=== PATIENT | female | born 1965 | race Caucasian/White ===

== ENCOUNTER 2017-10-19 18:39 | Emergency (ER) | payer OTHER ==
--- NOTE | 2017-10-19 18:59 | ER Report ---
History and Physical Time Seen By MD: 18:58 Hx. of Stated Complaint: PATIENT STATED HAVING ABD. PAIN THIS AM; GOTTEN WORSE TODAY; PT ALSO HAS NAUSEA AND VOMITING WELL HPI/ROS CHIEF COMPLAINT: abdominal pain HISTORY OF PRESENT ILLNESS: This is a 51 year old female. She has been having right lower abdominal pain for most of the day, started this morning, worsening through the day. Dull pain with intermittent severe sharp pain. Having nausea and vomiting as well. Not eating or drinking much so urinating less. No problems with bowels. No fevers, but having lc-menopausal flushes. REVIEW OF SYSTEMS: Constitutional: No fever or chills. Eyes: No vision changes. ENT: No sore throat. No congestion. Cardiovascular: No chest pain. No palpitations. Respiratory: No cough. No shortness of breath. Gastrointestinal: As above. Genitourinary: No dysuria. Musculoskeletal: No back pain. No extremity pain. Skin: No rashes. Neurological: No numbness. No weakness. Allergies: Coded Allergies: No Known Drug Allergies (Unverified , 10/19/17) Home Meds Active Scripts Hydromorphone Hcl (DILAUDID) 2 Mg Tablet, 2 MG PO Q4H Y for PAIN, #15 TAB 0 Refills Prov:SURINDER CORONA MD 10/20/17 Ondansetron (ZOFRAN ODT) 4 Mg Tab.rapdis, 4 MG PO Q6H Y for NAUSEA/VOMITING, # 20 TAB.ANDRA 0 Refills Prov:SURINDER CORONA MD 10/20/17 Reviewed Nurses Notes: Yes Hx Substance Use Disorder: No Hx Alcohol Use: Yes (OCC.) Constitutional Vital Sign - Last 24 Hours 10/19/17 10/19/17 10/19/17 10/19/17 18:46 18:51 19:09 19:39 Temp 97.9 Pulse 81 66 78 Resp 18 B/P (MAP) 116/69 (85) 116/69 Pulse Ox 100 99 97 O2 Delivery Room Air 10/19/17 10/19/17 10/19/17 10/19/17 20:09 20:14 20:29 20:44 Pulse 75 77 67 ??? Pulse Ox 98 93 99 10/19/17 10/19/17 10/19/17 10/19/17 20:49 20:59 21:00 21:14 Pulse 75 84 B/P (MAP) 113/80 (91) 111/65 (80) Pulse Ox 100 98 10/19/17 10/19/17 10/19/17 10/19/17 21:29 21:30 21:44 21:59 Pulse 84 84 81 B/P (MAP) 103/70 (81) Pulse Ox 99 100 99 10/19/17 10/19/17 10/19/17 10/19/17 22:04 22:19 22:30 22:34 Pulse 76 77 ??? B/P (MAP) ???/??? (1665) Pulse Ox 99 100 10/19/17 10/19/17 10/19/17 10/19/17 22:49 23:00 23:04 23:30 Pulse ? B/P (MAP) ???/??? (1665) ???/??? (1665) 10/19/17 10/19/17 10/19/17 10/20/17 23:34 23:49 23:54 00:09 Pulse 85 73 87 72 B/P (MAP) 95/78 (84) Pulse Ox 96 96 94 96 10/20/17 10/20/17 00:14 00:24 Pulse 69 B/P (MAP) 111/66 (81) Pulse Ox 96 Physical Exam General Appearance: The patient is alert. Acute distress due to pain. Eyes: Pupils are equal, round. No pallor, injection or icterus. ENT: Mucous membranes are moist. Neck: Supple and non tender. Respiratory: Lungs are clear to auscultation. Cardiovascular: Regular rate and rhythm. No murmurs, gallops or rubs. Normal capillary refill. Gastrointestinal: Abdomen is soft, tender in right lower abdomen, severe with rebound and guarding. Nondistended. Normal active bowel sounds. No costovertebral angle tenderness with percussion. Neurological: Alert and oriented x3. Skin: Warm and dry. No rashes. Musculoskeletal: Extremities are nontender. No tenderness in palpation of the back and spine. DIFFERENTIAL DIAGNOSIS: After history and physical exam, differential diagnosis was considered for abdominal pain in a female including but not limited to ovarian cyst, pelvic inflammatory disease, ovarian torsion, urinary tract infection, and appendicitis. Medical Decision Making Data Points Result Diagram: 10/19/17189910/19/171899 Laboratory Hematology Test 10/19/17 19:00 10/19/17 20:49 Red Blood Count 4.50 M/uL (4.17-5.56) Mean Corpuscular Volume 95.6 fL (80.0-96.0) Mean Corpuscular Hemoglobin 34.1 pg (26.0-33.0) Mean Corpuscular Hemoglobin Concent 35.7 g/dL (32.0-36.0) Red Cell Distribution Width 12.1 % (11.5-14.5) Mean Platelet Volume 7.1 fL (7.2-11.1) Neutrophils (%) (Auto) 52.4 % (39.4-72.5) Lymphocytes (%) (Auto) 39.3 % (17.6-49.6) Monocytes (%) (Auto) 6.2 % (4.1-12.4) Eosinophils (%) (Auto) 1.4 % (0.4-6.7) Basophils (%) (Auto) 0.7 % (0.3-1.4) Nucleated RBC Relative Count (auto) 0.0 /100WBC Neutrophils # (Auto) 4.1 K/uL (2.0-7.4) Lymphocytes # (Auto) 3.1 K/uL (1.3-3.6) Monocytes # (Auto) 0.5 K/uL (0.3-1.0) Eosinophils # (Auto) 0.1 K/uL (0.0-0.5) Basophils # (Auto) 0.1 K/uL (0.0-0.1) Nucleated RBC Absolute Count (auto) 0.00 K/uL Sodium Level 140 mmol/L (137-145) Potassium Level 3.5 mmol/L (3.5-5.0) Chloride Level 104 mmol/L (98-107) Carbon Dioxide Level 22 mmol/L (22-31) Blood Urea Nitrogen 12 mg/dl (7-18) Creatinine 0.90 mg/dl (0.52-1.04) Glomerular Filtration Rate Calc > 60.0 Random Glucose 144 mg/dl (75-110) Lactate 1.5 mmol/L (0.7-2.1) Calcium Level 9.0 mg/dl (8.4-10.2) Total Bilirubin 0.6 mg/dl (0.2-1.3) Aspartate Amino Transf (AST/SGOT) 25 U/L (0-35) Alanine Aminotransferase (ALT/SGPT) 28 U/L (0-56) Alkaline Phosphatase 66 U/L (0-126) Total Protein 7.2 g/dl (6.3-8.2) Albumin 4.2 g/dl (3.5-5.0) Amylase Level 76 U/L (0-110) Lipase 18 U/L (23-300) Urine Color Straw Urine Clarity Clear Urine pH 7.0 pH (4.8-9.5) Urine Specific [place] 1.038 Urine Protein Negative mg/dL (NEGATIVE) Urine Glucose (UA) Negative mg/dL (NEGATIVE) Urine Ketones 20 mg/dL (NEGATIVE) Urine Blood Negative (NEGATIVE) Urine Nitrite Negative (NEGATIVE) Urine Bilirubin Negative (NEGATIVE) Urine Urobilinogen Negative mg/dL (0.2-1.9) Urine Leukocyte Esterase Negative (NEGATIVE) Urine RBC <1 /HPF (0-2/HPF) Urine WBC 1 /HPF (0-5/HPF) Urine Squamous Epithelial Cells Moderate /LPF (</=FEW) Urine Bacteria Negative /HPF (NONE-FEW) Urine Mucus None /HPF (NONE-FEW) Chemistry Test 10/19/17 19:00 10/19/17 20:49 White Blood Count 7.9 k/uL (4.5-11.0) Red Blood Count 4.50 M/uL (4.17-5.56) Hemoglobin 15.4 g/dL (12.0-16.0) Hematocrit 43.0 % (34.0-47.0) Mean Corpuscular Volume 95.6 fL (80.0-96.0) Mean Corpuscular Hemoglobin 34.1 pg (26.0-33.0) Mean Corpuscular Hemoglobin Concent 35.7 g/dL (32.0-36.0) Red Cell Distribution Width 12.1 % (11.5-14.5) Platelet Count 333 K/uL (150-450) Mean Platelet Volume 7.1 fL (7.2-11.1) Neutrophils (%) (Auto) 52.4 % (39.4-72.5) Lymphocytes (%) (Auto) 39.3 % (17.6-49.6) Monocytes (%) (Auto) 6.2 % (4.1-12.4) Eosinophils (%) (Auto) 1.4 % (0.4-6.7) Basophils (%) (Auto) 0.7 % (0.3-1.4) Nucleated RBC Relative Count (auto) 0.0 /100WBC Neutrophils # (Auto) 4.1 K/uL (2.0-7.4) Lymphocytes # (Auto) 3.1 K/uL (1.3-3.6) Monocytes # (Auto) 0.5 K/uL (0.3-1.0) Eosinophils # (Auto) 0.1 K/uL (0.0-0.5) Basophils # (Auto) 0.1 K/uL (0.0-0.1) Nucleated RBC Absolute Count (auto) 0.00 K/uL Glomerular Filtration Rate Calc > 60.0 Lactate 1.5 mmol/L (0.7-2.1) Calcium Level 9.0 mg/dl (8.4-10.2) Total Bilirubin 0.6 mg/dl (0.2-1.3) Aspartate Amino Transf (AST/SGOT) 25 U/L (0-35) Alanine Aminotransferase (ALT/SGPT) 28 U/L (0-56) Alkaline Phosphatase 66 U/L (0-126) Total Protein 7.2 g/dl (6.3-8.2) Albumin 4.2 g/dl (3.5-5.0) Amylase Level 76 U/L (0-110) Lipase 18 U/L (23-300) Urine Color Straw Urine Clarity Clear Urine pH 7.0 pH (4.8-9.5) Urine Specific [place] 1.038 Urine Protein Negative mg/dL (NEGATIVE) Urine Glucose (UA) Negative mg/dL (NEGATIVE) Urine Ketones 20 mg/dL (NEGATIVE) Urine Blood Negative (NEGATIVE) Urine Nitrite Negative (NEGATIVE) Urine Bilirubin Negative (NEGATIVE) Urine Urobilinogen Negative mg/dL (0.2-1.9) Urine Leukocyte Esterase Negative (NEGATIVE) Urine RBC <1 /HPF (0-2/HPF) Urine WBC 1 /HPF (0-5/HPF) Urine Squamous Epithelial Cells Moderate /LPF (</=FEW) Urine Bacteria Negative /HPF (NONE-FEW) Urine Mucus None /HPF (NONE-FEW) Urinalysis Test 10/19/17 20:49 Urine Color Straw Urine Clarity Clear Urine pH 7.0 pH (4.8-9.5) Urine Specific [place] 1.038 Urine Protein Negative mg/dL (NEGATIVE) Urine Glucose (UA) Negative mg/dL (NEGATIVE) Urine Ketones 20 mg/dL (NEGATIVE) Urine Blood Negative (NEGATIVE) Urine Nitrite Negative (NEGATIVE) Urine Bilirubin Negative (NEGATIVE) Urine Urobilinogen Negative mg/dL (0.2-1.9) Urine Leukocyte Esterase Negative (NEGATIVE) Urine RBC <1 /HPF (0-2/HPF) Urine WBC 1 /HPF (0-5/HPF) Urine Squamous Epithelial Cells Moderate /LPF (</=FEW) Urine Bacteria Negative /HPF (NONE-FEW) Urine Mucus None /HPF (NONE-FEW) EKG/Imaging Imaging EXAMINATION: CT abdomen with IV contrast CT pelvis with IV contrast History: Right lower quadrant pain. Nausea. TECHNIQUE: Spiral scan was through the abdomen and pelvis during injection of nonionic iodinated intravenous contrast. One of the following dose optimization techniques was utilized in the performance of this exam: Automated exposure control; adjustment of the mA and/or kV according to the patient's size; or use of an iterative reconstruction technique. Specific details can be referenced in the facility's radiology CT exam operational policy. Contrast: 75 mL of IV Isovue-370. COMPARISON STUDIES: none. FINDINGS: Lower chest: negative Liver / biliary: 4 mm hypodensity probably a simple cyst right lobe of the liver , series 3 image 103. Pancreas: negative Spleen: negative Adrenal glands: 7 mm left adrenal nodule. Kidneys / retroperitoneum: negative Pelvic structures: Complex cystic and partially solid right ovarian mass measures 12.2 x 8.9 cm axially and 11 cm in craniocaudal dimension. Bowel / peritoneum / mesenteries: Negative. Normal appendix identified. Vessels: negative Musculoskeletal / Body wall: negative Lymph node assessment: negative IMPRESSION: 1. 12.2 x 8.9 x 11 cm complex right ovarian mass. There is an 7 mm left adrenal nodule most likely an adenoma, otherwise no evidence of metastatic disease. 2. Subcentimeter probable simple cyst right lobe of the liver. This is too small to adequately characterize. 3. Normal appendix. Results were called to SURINDER CORONA at 2040 hours. . Report Dictated By: Eze Dyer MD at 10/19/2017 8:20 PM Ultrasound of the pelvis: Indication: Evaluate right ovary. Technique: Transabdominal and transvaginal imaging, with Doppler. Comparison: CT scan from earlier the same day. Uterus: Normal in size and shape, measuring 6.9 x 4.0 x 3.9 cm. There appear to be 2 leiomyomas in the myometrium, measuring approximately 1.8 and 1.0 cm in size. The endometrial stripe measures 5 mm. There is a tiny nabothian cyst near the cervix. Right ovary/adnexa: The right ovary is enlarged, measuring approximately 10.8 x 10.2 x 8.1 cm. A large, septated cystic lesion is present, with cystic components measuring up to 10.5 and 3.6 cm. There is a thick septation, measuring between 5 and 14 mm. Very little normal ovarian parenchyma as visualized. Doppler images demonstrate no evidence of torsion. Left ovary/adnexa: The left ovary was not visualized. No adnexal mass or fluid collection is identified. Free fluid: Minimal fluid in the cul-de-sac. IMPRESSION: The right ovary is enlarged. A large, septated cystic lesion is present, with a thick septation. The pattern is indeterminant and malignancy cannot be excluded. Surgical consultation is recommended. Report Dictated By: Calos Menchaca MD at 10/19/2017 11:44 PM ED Course/Re-evaluation Clinical Indication for ER IV: Hydration, IV Access ED Course After the initial evaluation, she was given Morphine 4mg IV, with slight improvement. Labs and CT were obtained. Repeat Morphine for pain, again with slight relief. CT result showed right ovarian mass. Discussed with Dr. Robison. Ultrasound ordered and Dilaudid given for pain with a better improvement in her pain. Ultrasound showed no signs of torsion. CA-125 sent off. The patient feels like she can go home and we will send her with the Dilaudid tablets and Zofran. She will contact Dr. Robison's office on Sunday for further evaluation. Decision to Disposition Date: Oct 20, 2017 Decision to Disposition Time: 00:24 Depart Departure Latest Vital Signs Vital Signs Date Time Temp Pulse Resp B/P (MAP) Pulse Ox O2 Delivery O2 Flow Rate FiO2 10/20/17 00:24 111/66 (81) 10/20/17 00:14 69 96 10/19/17 18:51 97.9 18 Room Air Impression: Primary Impression: Ovarian mass, right Condition: Improved Disposition: HOME OR SELF-CARE Referrals: ALEXANDER ROBISON MD New Scripts Hydromorphone Hcl (DILAUDID) 2 Mg Tablet 2 MG PO Q4H Y for PAIN, #15 TAB 0 Refills Prov: SURINDER CORONA MD 10/20/17 Ondansetron (ZOFRAN ODT) 4 Mg Tab.rapdis 4 MG PO Q6H Y for NAUSEA/VOMITING, #20 TAB.ANDRA 0 Refills Prov: SURINDER CORONA MD 10/20/17 Patient Instructions: Ovarian Cyst (ED) Additional Instructions: You have a complex ovarian mass with cystic and solid features. Further evaluation needs to be done. Dr. Robison was contacted and will be able to see you on Sunday and discuss further options for workup of this mass. You will need to have this surgically removed and Dr. Robison will help you decide when and where that would be best. Take Dilaudid 2mg tablets, 1/2 tablet or 1 tablet every 4hours as needed for pain. Take the lowest effective dose. Zofran 4mg, one every 6 hours as needed for nausea. Call Dr. Robison's office on Sunday. She will be expecting your call. SURINDER CORONA MD Oct 19, 2017 18:59
[2017-10-19] MEDS ORDERED: NS(*) 0.9% 1000 ML BAG 1,000 ML IV ONE ×2 (19:02→20:40)
[2017-10-19] MEDS ORDERED: PANTOPRAZOLE SOD 40 MG IV VIAL IVP ONE (19:05)
[2017-10-19] MEDS ORDERED: MORPHINE 4 MG/ML SDV IVP ONE ×2 (19:05→20:40)
[2017-10-19] MEDS ORDERED: ONDANSETRON 4 MG/2 ML VIAL IVP ONE (19:05)
[2017-10-19 19:12] LABS: PLATELET COUNT, AUTOMATED 333 K/uL (150-450)
[2017-10-19] MEDS ORDERED: IOPAMIDOL 76% 75 ML INFUS BTL 75 ML ONE ×2 (19:57→20:04)
--- NOTE | 2017-10-19 20:47 | RADIOLOGY IMAGING REPORT ---
FACILITY: [facility] PATIENT NAME: Radha Sutherland : 1965 MR: [id number] V: [id number] EXAM DATE: ORDERING PHYSICIAN: SURINDER CORONA TECHNOLOGIST: Location: [facility] - [place] Patient: Radha Sutherland : 1965 Visit/Account:[id number] Date of Sevice: 10/19/2017 EXAMINATION: CT abdomen with IV contrast CT pelvis with IV contrast History: Right lower quadrant pain. Nausea. TECHNIQUE: Spiral scan was through the abdomen and pelvis during injection of nonionic iodinated in travenous contrast. One of the following dose optimization techniques was utilized in the performance of this exam: Automated exposure control; adjustment of the mA and/or kV according to the patient's size; or use of an iterative reconstruction technique. Specific details can be referenced in the [facility]'s radiology CT exam operational policy. Contrast: 75 mL of IV Isovue-370. COMPARISON STUDIES: none. FINDINGS: Lower chest: negative Liver / biliary: 4 mm hypodensity probably a simple cyst right lobe of the liver, series 3 image 103. Pancreas: negative Spleen: negative Adrenal glands: 7 mm left adrenal nodule. Kidneys / retroperitoneum: negative Pelvic structures: Complex cystic and partially solid right ovarian mass measures 12.2 x 8.9 cm ax ially and 11 cm in craniocaudal dimension. Bowel / peritoneum / mesenteries: Negative. Normal appendix identified. Vessels: negative Musculoskeletal / Body wall: negative Lymph node assessment: negative IMPRESSION: 1. 12.2 x 8.9 x 11 cm complex right ovarian mass. There is an 7 mm left adrenal nodule most likely an adenoma, otherwise no evidence of metastatic disease. 2. Subcentimeter probable simple cyst right lobe of the liver. This is too small to adequately charac terize. 3. Normal appendix. Results were called to SURINDER CORONA at 0 hours. . Report Dictated By: Eze Dyer MD at 10/19/2017 8:20 PM Report E-Signed By: Eze Dyer MD at 10/19/2017 8:44 PM WSN:[id number]
[2017-10-19] MEDS ORDERED: HYDROmorphone* 1 MG/ML 1 MG/ML ML IVP ONE (22:20)
--- NOTE | 2017-10-20 00:06 | RADIOLOGY IMAGING REPORT ---
FACILITY: [facility] PATIENT NAME: Radha Sutherland : 1965 MR: [id number] V: [id number] EXAM DATE: ORDERING PHYSICIAN: SURINDER CORONA TECHNOLOGIST: Location: [facility] Patient: Radha Sutherland : 1965 Visit/Account:[id number] Date of Sevice: 10/19/2017 Ultrasound of the pelvis: Indication: Evaluate right ovary. Technique: Transabdominal and transvaginal imaging, with Doppler. Comparison: CT scan from earlier the same day. Uterus: Normal in size and shape, measuring 6.9 x 4.0 x 3.9 cm. There appear to be 2 leiomyomas in th e myometrium, measuring approximately 1.8 and 1.0 cm in size. The endometrial stripe measures 5 mm. T here is a tiny nabothian cyst near the cervix. Right ovary/adnexa: The right ovary is enlarged, measuring approximately 10.8 x 10.2 x 8.1 cm. A larg e, septated cystic lesion is present, with cystic components measuring up to 10.5 and 3.6 cm. There i s a thick septation, measuring between 5 and 14 mm. Very little normal ovarian parenchyma as visualiz ed. Doppler images demonstrate no evidence of torsion. Left ovary/adnexa: The left ovary was not visualized. No adnexal mass or fluid collection is identifi ed. Free fluid: Minimal fluid in the cul-de-sac. IMPRESSION: The right ovary is enlarged. A large, septated cystic lesion is present, with a thick sep tation. The pattern is indeterminant and malignancy cannot be excluded. Surgical consultation is diane mmended. Report Dictated By: Calos Menchaca MD at 10/19/2017 11:44 PM Report E-Signed By: Calos Menchaca MD at 10/20/2017 12:01 AM WSN:[id number]
[2017-10-20 00:24] VITALS: BP 111/66
[2017-10-20] MEDS ORDERED: ONDANSETRON 4 MG ODT TH SL ONE (00:25)
[2017-10-20] MEDS ORDERED: HYDROmorphone 2 MG TAB TH 2 TAB/BOTTLE PO ONE (00:25)
[2017-10-20] MEDS ORDERED: ONDA4TAB PO (00:29)
[2017-10-20] MEDS ORDERED: HYDR2TAB74 PO (00:29)
[2017-10-22] MEDS ORDERED: HYDR2TAB74 PO (11:02)
== END 2017-10-20 00:39 | disposition home or self-care (01) ==
LOC: ER 18:43
DX: N83.8 Other noninflammatory disorders of ovary, fallopian tube and broad ligament (principal)
CPT/HCPCS: 74177; 76856; 81001; 82150; 83605; 83690; 85025; 86304; 96361; 96374; 96375; 96376; 99284; C9113; J1170; J2270; J2405; J7030; Q9967; 82040; 82247; 82310; 82374; 82435; 82565; 82947; 84075; 84132; 84155; 84295; 84450; 84460; 84520

== ENCOUNTER 2017-11-14 01:15 | Observation (INO) | payer OTHER ==
[~2017-11-14] VITALS: Ht 162.6 cm; Wt 64.9 kg
[2017-11-14] VITALS (12 sets, daily range): BP systolic 105–139; BP diastolic 56–80
[~2017-11-14 01:15] MED LIST: HYDR2TAB74 PO; NAPR220C12 PO; ONDA4TAB PO; POLY17PO25 PO; [UNRECOGNIZED DRUG - CODE] PO; [UNRECOGNIZED DRUG - CODE] TP
[2017-11-14] MEDS ORDERED: FAMOTIDINE 20 MG TAB PO ONE (05:45)
[2017-11-14] MEDS ORDERED: PHENAZOPYRIDINE 200 MG TAB PO ONE (10:20)
[2017-11-14] MEDS ORDERED: NORMOSOL R SOLN(*) 1000 ML BAG 1,000 ML IV PRN (10:30)
[2017-11-14] MEDS ORDERED: ceFAZolin(*) 1 GM VIAL 1 GM in NS(*) 0.9% 100 ML ADDVANT BAG 100 ML IVPB ONE (10:30)
[2017-11-14] MEDS ORDERED: MIDAZOLAM 2 MG/2 ML VIAL IVP PRN (10:30)
[2017-11-14] MEDS ORDERED: LIDOCAINE/SOD BICARB 8.4% SYR ID ONE (10:30)
[2017-11-14] MEDS ORDERED: MIDAZOLAM 2 MG/2 ML VIAL ONE (10:45)
[2017-11-14] MEDS ORDERED: fentaNYL CITR 100 MCG/2 ML AMP ONE ×2 (10:45→15:12)
[2017-11-14] MEDS ORDERED: DEXAMETHASONE SOD PHOS 10MG/ML ONE (10:46)
[2017-11-14] MEDS ORDERED: ROCURONIUM BROM 10 MG/ML 10 ML ONE (10:46)
[2017-11-14] MEDS ORDERED: PROPOFOL EMUL(*) 10MG/ML 20 ML 20 ML ONE (10:46)
[2017-11-14] MEDS ORDERED: ONDANSETRON 4 MG/2 ML VIAL ONE (10:46)
[2017-11-14] MEDS ORDERED: LIDOCAINE MPF 1% 5 ML VIAL ONE (10:46)
[2017-11-14] MEDS ORDERED: SUGAMMADEX SOD 500 MG/5 ML SDV ONE (11:54)
[2017-11-14] MEDS ORDERED: BUPIV/EPI 0.25% 1:200,000 50ML INFIL ONE (12:21)
[2017-11-14] MEDS ORDERED: ESMOLOL 10 MG/ML 10ML SDV ONE (13:04)
[2017-11-14] MEDS ORDERED: DLR(*) 1000 ML BAG 1,000 ML IV PRN (15:17)
--- NOTE | 2017-11-14 15:17 | Post Operative Note ---
Operative Note - CODE OFFICIAL Operative Day Date: Nov 14, 2017 Time: 15:15 Physicians Surgeon: [employer] Strategist: Jc Anesthesia: Radha PUENTE Diagnosis Pre-Op Diagnosis: Right adnexal mass Post-Op Diagnosis: Same Procedure Findings: Torsed right ovary with ovarian cystic mass Procedure(s): RATLH, RSO, left sapingectomy, dx cysto Specimen Removed:(Maybe N/A): Uterus, cervix, bilat tubes, right ovary Fluids Fluids: IVF: 1600cc Estimated Blood Loss: 25cc ALEXANDER ESPANA MD Nov 14, 2017 15:17
[2017-11-14] MEDS ORDERED: INFLUENZA VIRUS VAC 0.5 ML SYR IM ONE (15:20)
[2017-11-14] MEDS ORDERED: ONDANSETRON 4 MG/2 ML VIAL IV PRN (15:20)
[2017-11-14] MEDS ORDERED: SIMETHICONE 80 MG CHEW CHEW PRN (15:20)
[2017-11-14] MEDS ORDERED: HYDROmorphone HCL 2 MG/ML SDV IVP PRN (15:20)
[2017-11-14] MEDS ORDERED: METOCLOPRAMIDE 10 MG/2 ML SDV IV PRN (15:20)
[2017-11-14] MEDS ORDERED: MAGNESIUM HYDROXIDE* 30ML UDCP PO PRN (15:20)
[2017-11-14] MEDS: KETOROLAC 30 MG/ML VIAL IVP SCH ×2 (15:41→21:31)
[2017-11-14] MEDS ORDERED: HYDROmorphone HCL 2 MG/ML SDV ONE (15:53)
--- NOTE | 2017-11-14 17:51 | OB/GYN Progress Note ---
OB Subjective Progress Notes Subjective Pt is doing well. Pain is generally well controlled with IV meds so far. Tolerating water well. No N/V. No VB. Orosco in. No CP/SOB/dizziness. OB Objective Physical Exam Vital Signs Date Time Temp Pulse Resp B/P (MAP) Pulse Ox O2 Delivery O2 Flow Rate FiO2 11/14/17 17:34 76 16 97 Nasal Cannula 1.0 11/14/17 17:30 139/71 (93) 11/14/17 17:00 97.4 Intake and Output 11/15/17 06:59 Intake Total 2090 ml Output Total 925 ml Balance 1165 ml Intake Oral 240 ml IV Total 1850 ml Output Urine Total 925 ml General Appearance: Alert/Awake/No Acute Distress Neurological: No Gross deficits Eyes: Normal Extraocular Movement & Vison Cardiovascular: Normal Rhythm & Peripheral Pulses, Regular Rate and Rhythm Respiratory: No Respiratory Distress, Clear to Auscultation Abdomen: Other (Soft, mildy tender, nondistended) Incision: Clean, Dry, Intact Musculoskeletal: No Weakness/Pain Extremities: No Cyanosis,Clubbing or Edema Integumentary: Skin Intact without Lesions or Rash Psychological: Alert & Oriented X3, Appropriate Mood & Affect Result Diagram: 11/14/17 0932 Assessment and Plan Problems: (1) Status post laparoscopic hysterectomy Assessment & Plan: POD#0 s/p RATLH,RSO, LS, dx cysto. Doing well. Plan to transition to po meds and remove orosco once ambulating. Anticipate home tomorrow. (2) Status post right oophorectomy ALEXANDER ESPANA MD Nov 14, 2017 17:51
[2017-11-14] MEDS ORDERED: HYDR2TAB74 PO (17:52)
[2017-11-14] MEDS ORDERED: IBUP800T37 PO (17:52)
[2017-11-14] MEDS: HYDROmorphone HCL 2 MG TAB PO PRN (18:29)
[2017-11-14] MEDS: DOCUSATE CALCIUM 240 MG CAP PO SCH (21:30)
[2017-11-14] MEDS: FAMOTIDINE 20 MG TAB PO SCH (21:30)
--- NOTE | 2017-11-14 23:05 | OPERATIVE REPORT 1 ---
EVENT DATE: November 14, 2017 SURGEON: Toya Robison MD ANESTHESIOLOGIST: Emiliano Garcia MD ANESTHESIA: General endotracheal tube anesthetic. ACUPRESSURE THERAPIST: Ham Greene DO PREOPERATIVE DIAGNOSIS Right adnexal mass. POSTOPERATIVE DIAGNOSIS Right adnexal mass. FINDINGS Torsed right ovary with ovarian cystic mass. PROCEDURES PERFORMED 1. Robotic-assisted total laparoscopic hysterectomy with right salpingo- oophorectomy and left salpingectomy. 2. Diagnostic cystoscopy. SPECIMENS REMOVED Uterus, cervix, bilateral tubes, and the right ovary. INTRAVENOUS FLUIDS 1600 mL ESTIMATED BLOOD LOSS 25 mL INDICATIONS FOR PROCEDURE This patient is a 51-year-old 2, para 2, who presented with a newly diagnosed right ovarian mass. Her CA-125 was 27. Ultrasound revealed a cystic mass without any evidence of carcinomatosis on CT scan. After discussing the risks, benefits, and alternatives, the patient elected to undergo the above- said procedure and was admitted for the same. DESCRIPTION OF PROCEDURE The patient was properly identified and taken to the operating room. She was placed under general endotracheal tube anesthetic, placed in the dorsal lithotomy position, and prepped and draped in the usual fashion for laparoscopic -assisted vaginal procedure. The patient received Ancef preoperatively for prophylactic antibiotics. Her SCDs were on and functioning. A timeout was taken prior to the procedure. A Graves speculum was placed visualize the cervix which was noted to be multiparous and without lesion. The anterior lip was grasped with a tenaculum. The cervix was then serially dilated to 5 mm using Hegar dilators. A medium VCare uterine manipulator was then requested and assembled. A suture was placed through the anterior lip of the cervix to the center of the os and then from the os through the posterior lip of the cervix. The suture was then passed through the VCare device which was advanced into the uterine fundus, and the tip was insufflated. This remained in place, and the colpotomy ring was advanced to be flush against the cervix and vaginal mucosa. This was then tied down with an 0 Vicryl suture. The pneumo-occluder was advanced into the vagina and secured. A Ballesteros catheter was placed to drain the bladder. The patient was then placed in the supine position, and attention was turned to the laparoscopic portion of the procedure. The supraumbilical region was infiltrated with 0.25% Marcaine with epinephrine. A Veress needle was tested and proven to be functioning. An 8 mm incision was made supraumbilically. The Veress needle was then passed through the umbilicus using a double click test. Pneumoperitoneum was then achieved. The 8 mm trocar was then introduced through the supraumbilical midline incision under direct visualization using a Parsimotion laparoscope. Once entry into the abdominal cavity was confirmed, the remaining locations of the trocars were planned with two 8 mm on the right and an 8 mm and an 11 mm on the left. The two locations for the trocars on the right side were infiltrated with 0.25% Marcaine, and 8 mm incisions were made with the scalpel. These two trocars were then introduced under direct visualization. On the patient's left side, an 11 mm incision was made with introduction of an 11 mm staff assistant port on the most lateral incision, followed by an 8 mm incision in the more medial with introduction of the 8 mm trocar under direct visualization. At this time, the abdomen was surveyed, and the superior abdomen appeared within normal limits. There was no evidence of carcinomatosis or excess free fluid. In the pelvis, there was noted to be a large cystic mass. Trendelenburg was then achieved which did reveal a torsed, large right adnexal cystic mass. Pelvis washings were obtained at this time and sent for pathology. At this time, the patient was prepared for docking. The da Jung robotic system was then brought in and aligned. The endoscope port was docked. The endoscope was then introduced, and targeting was performed on the uterus. The remaining arms were then docked without difficulty. The fenestrated bipolar grasper, ProGrasp, and monopolar scissors were then advanced under direct visualization into the pelvis, and energy was connected. At this time, I was able to break sterile attire and sit at the console to initiate the robotic-assisted portion of this surgery. Once again, examination of the pelvis revealed a large right adnexal mass which was torsed twice on itself. This mass was easily detorsed. The IP ligament was noted to be far away from the right ureter; therefore, the right IP ligament was cauterized and transected, followed by traversing the mesosalpinx of the right fallopian tube until the utero-ovarian ligament was identified, cauterized, and transected. Once this entire right adnexal mass was completely from the other tissue, it was placed into the left upper abdomen by the stomach until further removal was appropriate. Once this was completed, and attention was again turned to the pelvis, the remainder of the pelvis was able to be visualized. The uterus was noted to be small and without any lesion. The left ovary was also small and appeared very normal. Therefore, the left fallopian tube was grasped and noted to be somewhat adhered to the pelvic sidewall. Therefore, the adhesions were taken down on the left side using monopolar scissors, and the left fallopian tube was able to be removed with cauterization and transection using monopolar scissors and the bipolar grasper. Once this tube was completely along the mesosalpinx, it was removed through the staff assistant port without difficulty and passed off the table. Attention was then able to be turned to the uterus and hysterectomy. The right round ligament was cauterized and transected, which allowed opening of the broad ligament. The anterior leaflet was opened and brought across the midline above the colpotomy ring in order to separate the vesicouterine peritoneum. The posterior peritoneum was then dissected further off the uterus on the right side down to the cervix. The uterine vessels were identified, cauterized, and transected in order to allow the colpotomy to be performed. Attention was then turned to the patient's left side where the left ureter was identified and noted to be far away from the uterine anatomy at the pelvic brim. The left utero-ovarian ligament was cauterized and transected, followed by cauterization and transection of the round ligament. This allowed the broad ligament to be opened. The anterior leaflet was brought down to the midline where the prior vesicouterine peritoneum on the other side had been dissected. The posterior leaflet was then also brought down to the level of the colpotomy ring. The uterine vessels were visualized and cauterized. These were taken down with monopolar scissors to the level where the colpotomy would need to be performed. At this time, the bladder flap was further delineated and brought down without difficulty to a safe area in order to allow for closure of the vaginal cuff later. The colpotomy was then initiated anteriorly with identification of the colpotomy ring. The colpotomy was then continued in a circumferential fashion until the entire colpotomy was completed. The uterus was then delivered through the vagina without any difficulty. Dr. Greene then introduced a 15 mm Endo Catch bag through the vagina into the abdominal cavity and deployed the bag. I was then able to retrieve the right adnexal mass from the superior left abdomen and placed it in the bag. Once it was fully placed into the Endo Catch bag, the bag was able to be closed and retracted through the vagina to where the opening of the bag was fully in the vagina. It was clear that this mass was too large to be removed from the vagina without being ruptured; therefore, using a tonsil clamp, Dr. Greene was able to rupture the cystic mass with return of old bloody fluid, which did not spill into the abdomen. The bag was then easily removed once some of the fluid had been drained. At this time, a bulb grenade was placed in the vagina to maintain pneumoperitoneum. The cuff was copiously irrigated and noted to be hemostatic. An 0 Vicryl suture was then utilized in a [id number] manner to reapproximate the left corner of the vaginal cuff. A V-Loc was then initiated on the right side to reapproximate that corner, following to the left with an unlocked suture. Once this was completely closed, the suture was followed backwards with one additional suture towards the right. Once this was completed, copious irrigation was again performed, revealing adequate hemostasis. Using the Sebastian-Biju device, the fascia of the staff assistant port was then closed with an 0 Vicryl suture using robotic assistance. This was able to be tied down. All of the robotic instruments were removed, and the robotic arms were undocked. Pneumoperitoneum was relieved, and all five skin incisions were reapproximated using a 4-0 Monocryl and closed with Dermabond. The Ballesteros catheter was removed from the bladder. A cystoscope was then assembled and introduced through the urethra and into the bladder under direct visualization. The entire bladder was evaluated and noted to be normal without any lesion or sutures. Bilateral ureteral jets were noted with yellow-stained urine. The cystoscope was then removed, and the Ballesteros catheter was replaced. The patient tolerated this procedure well and recovered in the post-anesthesia care unit. All sponge, needle, and instrument counts were correct at the end of the procedure. HENRI
[2017-11-15] MEDS: HYDROmorphone HCL 2 MG TAB PO PRN ×2 (00:14→06:11)
[2017-11-15 00:16] VITALS: BP 116/74
[2017-11-15] MEDS: KETOROLAC 30 MG/ML VIAL IVP SCH (03:21)
[2017-11-15 03:55] VITALS: BP 106/69
[2017-11-15 06:28] LABS: PLATELET COUNT, AUTOMATED 248 K/uL (150-450)
[2017-11-15 08:20] VITALS: BP 117/71
[2017-11-15] MEDS: FAMOTIDINE 20 MG TAB PO SCH (09:07)
[2017-11-15] MEDS: DOCUSATE CALCIUM 240 MG CAP PO SCH (09:07)
[2017-11-15] MEDS ORDERED: IBUPROFEN 800 MG TAB PO PRN (10:00)
[2017-11-15 10:33] VITALS: Ht 162.6 cm; Wt 64.9 kg
--- NOTE | 2017-11-15 11:41 | OB/GYN Progress Note ---
OB Subjective Progress Notes Subjective Doing good this morning no complaints. Patient ready to leave soon as she possibly can. Reports minimal vaginal bleeding. Pain controlled with Dilaudid by mouth. He said Ballesteros catheter removed has not voided. Tolerating by mouth intake. Ambulatory in halls. GI: NEG Nausea, NEG Vomiting, NEG Flatus, NEG Bowel Movement : Vaginal Bleeding, Scant Pain: Mild, Tolerating PO Pain Meds Neurological: No Headache, No Other Eyes: No Visual Disturbances OB Objective Physical Exam Vital Signs Date Time Temp Pulse Resp B/P (MAP) Pulse Ox O2 Delivery O2 Flow Rate FiO2 11/15/17 08:20 97.7 80 16 117/71 (86) 94 Room Air 11/15/17 03:55 0.5 Intake and Output 11/16/17 06:59 Intake Total 200 ml Output Total 350 ml Balance -150 ml Intake Oral 200 ml Output Urine Total 350 ml # Voids 2 General Appearance: Alert/Awake/No Acute Distress Neurological: No Gross deficits Eyes: Normal Extraocular Movement & Vison Cardiovascular: Normal Rhythm & Peripheral Pulses, Regular Rate and Rhythm Respiratory: No Respiratory Distress, Clear to Auscultation Abdomen: Other (Soft, mildy tender, nondistended) Incision: Clean, Dry, Intact, Dermabond Musculoskeletal: No Weakness/Pain Extremities: No Cyanosis,Clubbing or Edema Integumentary: Skin Intact without Lesions or Rash Psychological: Alert & Oriented X3, Appropriate Mood & Affect Result Diagram: 11/15/17 0615 11/14/17 0932 Assessment and 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 Patient doing very well and denies any complaints has not voided since having catheter removed. Does desire to be discharged as soon as possible. Understands this has to happen after her void. (2) Status post right oophorectomy EMANI THIBODEAUX DO Nov 15, 2017 11:41
--- NOTE | 2017-11-15 11:42 | OB/GYN Discharge Summary ---
Discharge Summary Reason for Hosp/Final Diag: (1) Status post laparoscopic hysterectomy Status: Acute Hospital Course & Plan: Patient presented for a scheduled robot-assisted hysterectomy with oophorectomy and bilateral salpingectomy. Patient underwent procedure without any difficulty, see operative report for details of procedure. Patient remained in the hospital for 1 day post operatively where she was discharged home on postop day 1 after meeting postoperative goals. Patient follow up with Dr. Robison in 2 weeks to discuss pathology and to look incisions. (2) Status post right oophorectomy Lates Vital Signs Vital Signs Date Time Temp Pulse Resp B/P (MAP) Pulse Ox O2 Delivery O2 Flow Rate FiO2 11/15/17 08:20 97.7 80 16 117/71 (86) 94 Room Air 11/15/17 03:55 0.5 Weight (Pounds): 143 Result Diagram: 11/15/17 0615 11/14/17 0932 Condition: Improved Discharge: Home Home Meds Active Scripts Ibuprofen (IBUPROFEN) 800 Mg Tablet, 1 TAB PO Q8H Y for pain, #40 TAB 0 Refills TAKE WITH FOOD EVERY 8 HOURS Prov:ALEXANDER ROBISON MD 11/14/17 Hydromorphone Hcl (DILAUDID) 2 Mg Tablet, 2 MG PO Q4-6H Y for pain, #40 TAB 0 Refills Prov:ALEXANDER ROBISON MD 11/14/17 Reported Medications Simethicone (GAS RELIEF) 125 Mg Tab.chew, 125 MG PO PRN, TAB.CHEW 11/08/17 Polyethylene Glycol 3350 (MIRALAX) 17 Gm Powd.pack, 17 GM PO, PKT 11/08/17 Diphenhydramine Hcl/Zinc Acet (BENADRYL ITCH STOPPING CRM) 28.3 Gm Cream..g., 28.3 GM TP PRN 11/08/17 Discontinued Reported Medications Naproxen Sodium (ALEVE) 220 Mg Capsule, 220 MG PO HS Y for PAIN, CAPSULE 11/08/17 Discontinued Scripts Hydromorphone Hcl (DILAUDID) 2 Mg Tablet, 2 MG PO Q4-6H Y for PAIN, #40 TAB 0 Refills Prov:EMANI THIBODEAUX DO 10/22/17 Ondansetron (ZOFRAN ODT) 4 Mg Tab.rapdis, 4 MG PO Q6H Y for NAUSEA/VOMITING, # 20 TAB.ANDRA 0 Refills Prov:SURINDER CORONA MD 10/20/17 Hydromorphone Hcl (DILAUDID) 2 Mg Tablet, 2 MG PO Q4H Y for PAIN, #15 TAB 0 Refills Prov:SURINDER CORONA MD 10/20/17 Follow up with: [facility] [phone], Dr. Robison [phone] Follow up in: 2 wks PO Discharge Diet: As Tolerates Discharge Activity: As Tolerates, No Heavy Lifting > 10lb Special Instructions: EMANI THIBODEAUX DO Nov 15, 2017 11:42
== END 2017-11-15 09:58 | disposition home or self-care (01) ==
LOC: OR 01:15 → PED 17:00
PROVIDERS: ADMIT Obstetrics & Gynecology; ATTEND Obstetrics & Gynecology
DX: N83.9 Noninflammatory disorder of ovary, fallopian tube and broad ligament, unspecified (principal)
CPT/HCPCS: 36415; 58571; 81025; 85025; 88104; 88305; 88307; G0378; J0690; J1100; J1170; J1885; J2001; J2250; J2405; J2704; J3010; J3490; J7050; S2900; 82310; 82374; 82435; 82565; 82947; 84132; 84295; 84520

== ENCOUNTER → 2018-02-20 | Outpatient (CLI) | payer OTHER ==
[2017-11-15 10:33] VITALS: BMI 24.5
[~2018-02-20] MED LIST changes: +CYCL10TA29 PO; +FLU60VIA41 IM; +IBUP800T37 PO; +META800T18 PO; +TRAZ100T31 PO
== END ==
LOC: LAB 11:37
PROVIDERS: ATTEND Emergency Medicine
DX: G62.9 Polyneuropathy, unspecified (principal)
CPT/HCPCS: 36415; 82306; 82465; 82607; 83718; 84478